=== PATIENT | female | born 1975 | race Caucasian/White ===

== ENCOUNTER 2017-02-05 16:20 | Emergency (ER) | payer MEDICAID ==
[2017-02-05 16:20] VITALS: BMI 26.5
[2017-02-05 16:30] VITALS: RESP 16; TEMP 98.3
[2017-02-05] MEDS ORDERED: Sodium Chloride 0.9% 1,000 ML IV STA (17:15)
[2017-02-05 17:31] LABS: BASO # 0.01 K/mm3 (0.0-2.0); BASO % 0.3 % (0.0-3.0); EOS # 0.1 (0.0-0.7); EOS % 1.6 % (1.5-5.0); GRAN # 1.89 (1.4-6.5); GRAN % 51.5 % (50.0-68.0); HEMOGLOBIN 12.5 gm/dL (12.0-16.0); LYMPH # 1.5 (1.2-3.4); LYMPH % 39.8 % (22.0-35.0); MEAN CELL VOLUME 81.9 fL (80.0-105.0); MEAN CORPUSCULAR HEMOGLOBIN 27.6 pg (25.0-35.0); MEAN CORPUSCULAR HGB CONC 33.7 g/dl (31.0-37.0); MEAN PLATELET VOLUME 10.9 fl (7.0-11.0); MONO # 0.3 (0.1-0.6); MONO % 6.8 % (1.0-6.0); PLATELET COUNT 216 10^3/uL (120.0-450.0); RBC 4.53 10^6/uL (3.5-6.1); RED CELL DISTRIBUTION WIDTH 13.1 % (11.5-14.5); WHITE BLOOD COUNT 3.7 10^3/ul (4.5-11.0)
--- NOTE | 2017-02-05 17:33 | ED PDOC ---
Arrival/HPI - General Chief Complaint: Abdominal Pain Time Seen by Provider: 02/05/17 16:45 Historian: Patient - History of Present Illness Narrative History of Present Illness (Text): 02/05/17 17:30 Patient with no significant past medical history, complains of 3 week history of intermittent epigastric abdominal pain described as gassy bloating burning sensation, associated with nausea. States that she saw her PMD regarding her symptoms and was prescribed Pepcid initially with no improvement, was then placed on Protonix which she has been taking since. She reports that her symptoms have been more persistent for the past week and worse with eating. Otherwise: (-) vomiting, (-) diarrhea, (-) dysuria, (-) fever, (-) melena, (-) hematochezia. Has history of prior abdominal surgery - appendectomy. PMD [place] Past Medical History - Provider Review Nursing Documentation Reviewed: Yes - Musculoskeletal/Rheumatological Hx Arthritis: Yes (lower back) Hx Back Pain: Yes Hx Falls: No - Gastrointestinal Hx Gastrointestinal Disorders: Yes Hx Gastritis: Yes - Psychiatric Hx Substance Use: No - Surgical History Other/Comment: Bilateral carpel tunnel surgery. - Anesthesia Hx Anesthesia: Yes Family/Social History - Physician Review Nursing Documentation Reviewed: Yes Family/Social History: Diabetes Smoking Status: Never Smoked Hx Alcohol Use: No Hx Substance Use: No Allergies/Home Meds Allergies/Adverse Reactions: Allergies No Known Allergies Allergy (Verified 12/27/15 15:52) Home Medications: Home Meds Medication Instructions Recorded Confirmed Famotidine [Pepcid] 40 mg PO DAILY 02/05/17 02/05/17 Pantoprazole Sodium [Protonix] 40 mg PO DAILY 02/05/17 02/05/17 Review of Systems - Review of Systems Constitutional: Normal. absent: Fatigue, Weight Change, Fevers Respiratory: Normal. absent: SOB, Cough, Sputum Cardiovascular: Normal. absent: Chest Pain, Palpitations, Edema Gastrointestinal: Normal, Abdominal Pain, Appetite Changes Musculoskeletal: Normal. absent: Arthralgias, Back Pain, Neck Pain Skin: Normal. absent: Rash, Pruritis, Skin Lesions Physical Exam - Physical Exam Narrative Physical Exam (Text): 02/05/17 17:33 GENERAL APPEARANCE: Patient is awake, alert, oriented x 3, in mild painful distress. SKIN: Warm, dry; (-) cyanosis. EYES: (-) conjunctival pallor, (-) scleral icterus. ENMT: Mucous membranes dry. NECK: (-) tenderness, (-) stiffness, (-) lymphadenopathy. CHEST AND RESPIRATORY: (-) rales, (-) rhonchi, (-) wheezes; breath sounds equal bilaterally. HEART AND CARDIOVASCULAR: (-) irregularity; (-) murmur, (-) gallop. ABDOMEN AND GI: (-) distention. Bowel sounds active; (+) RUQ and epigastric tenderness, (-) Wheeler's sign, (-) guarding, (-) rebound, (-) palpable masses, ( -) CVA tenderness. EXTREMITIES: (-) deformity, (-) edema, (+) distal pulses. NEURO AND PSYCH: Mental status as above; (-) focal findings. Vital Signs Temp Pulse Resp BP Pulse Ox 02/05/17 18:15 62 16 106/67 100 02/05/17 17:00 63 16 148/68 100 02/05/17 16:29 98.3 F 71 16 129/80 100 Medical Decision Making ED Course and Treatment: 02/05/17 17:33 14 yo F with no significant past medical history, complains of 3 week history of intermittent epigastric abdominal pain worse x 1 week, associated with nausea. Differential diagnosis : r/o acute cholecystitis, biliary colic, dyspepsia Plan: -- Labs -- IV fluids -- Urinalysis -- Protonix IV / Zofran IV -- Reassess and disposition -- US ABD 02/05/17 19:30 Laboratory results reviewed and are within normal limits. Ultrasound abdomen shows no acute findings. Lab and ultrasound results discussed with the patient in great detail. On reevaluation patient reports significant improvement of abdominal pain and nausea. She still complains of mild epigastric pain. On exam , patient is laying in bed comfortably in no acute distress, abdomen remains soft with mild epigastric tenderness. Patient given GI cocktail. Informed of likely diagnosis of dyspepsia, advised to continue protonix, will give Rx for carafate, and instructed to f/u with her pmd and obtain GI referral for follow up and need for possible endoscopy in the near future. Instructed to return to the emergency room at any time for any new or worsening symptoms. Patient states she fully agrees with and understands discharge instructions. States that she agrees with the plan and disposition. Verbalized and repeated discharge instructions and plan. I have given the patient opportunity to ask any additional questions. - Lab Interpretations Lab Results: 02/05/17 16:55 02/05/17 16:55 Lab Results 02/05/17 16:55: Sodium 140, Potassium 4.1, Chloride 103, Carbon Dioxide 26, Anion Gap 15, BUN 9, Creatinine 0.7, Est GFR ( Amer) > 60, Est GFR (Non- Af Amer) > 60, Random Glucose 103, Calcium 9.3, Total Bilirubin 0.6, AST 29, ALT 35, Alkaline Phosphatase 39, Total Protein 7.7, Albumin 4.4, Globulin 3.3, Albumin/Globulin Ratio 1.3, Lipase 80 02/05/17 16:55: Urine Color Yellow, Urine Appearance Sl cloudy, Urine pH 6.0, Ur Specific [place] 1.015, Urine Protein Negative, Urine Glucose (UA) Negative, Urine Ketones Negative, Urine Blood Moderate H, Urine Nitrate Negative, Urine Bilirubin Negative, Urine Urobilinogen 0.2, Ur Leukocyte Esterase Negative, Urine RBC 5 - 10, Urine WBC 1 - 3, Ur Epithelial Cells 1 - 3, Urine Bacteria Few 02/05/17 16:55: WBC 3.7 L D, RBC 4.53, Hgb 12.5, Hct 37.1, MCV 81.9, MCH 27.6, MCHC 33.7, RDW 13.1, Plt Count 216, MPV 10.9, Gran % 51.5, Lymph % (Auto) 39.8 H , [place] % (Auto) 6.8 H, Eos % (Auto) 1.6, Baso % (Auto) 0.3, Gran # 1.89, Lymph # 1.5, [place] # 0.3, Eos # 0.1, Baso # 0.01 I have reviewed the lab results: Yes - RAD Interpretation Narrative RAD Interpretations (Text): 02/05/17 19:50 US ABDOMEN : FINDINGS: Liver: The liver measures 15.3 cm in length. The liver is normal in echotexture. Gallbladder: No discrete gallstones are visualized. There is no significant gallbladder wall thickening. Common bile duct: The common bile duct measures 1.8 mm in diameter, which is within normal limits. Pancreas: There is suboptimal evaluation of the tail of the pancreas due to bowel gas. No focal abnormality is seen within the visualized head or body of the pancreas. Kidneys: The right kidney measures 10.0 x 3.3 x 4.9 cm. The left kidney measures 9.9 x 5.4 x 6.1 cm. There is no hydronephrosis or shadowing nephrolithiasis bilaterally. Spleen: The spleen measures 10.8 x 4.0 x 4.3 cm and is normal in echotexture. Aorta: Evaluation of the abdominal aorta is limited. Inferior vena cava: The visualized segment of the IVC is patent. IMPRESSION: 1. No sonographic evidence of acute cholecystitis. 2. Additional findings described above. Thank you for allowing us to participate in the care of your patient. Dictated and Authenticated by: Daniel Tse MD 02/05/2017 7:42 PM Eastern Time ([place] & [place]) Radiology Orders: 02/05/17 17:15 ABDOMEN COMPLETE [US] Stat - Medication Orders Current Medication Orders: Discontinued Medications Al Hydrox/Mg Hydrox/Simethicone (Maalox Plus 30 Ml) 30 ml PO STAT STA Stop: 02/05/17 20:07 Belladonna/Phenobarbital ( Elixir) 5 ml PO STAT STA Stop: 02/05/17 20:07 Sodium Chloride (Sodium Chloride 0.9%) 1,000 mls @ 1,000 mls/hr IV .Q1H STA Stop: 02/05/17 18:14 Last Admin: 02/05/17 17:23 Dose: 1,000 mls/hr Lidocaine HCl (Lidocaine 2% Viscous) 15 ml PO STAT STA Stop: 02/05/17 20:07 Ondansetron HCl (Zofran Inj) 4 mg IVP STAT STA Stop: 02/05/17 17:16 Last Admin: 02/05/17 17:24 Dose: 4 mg Pantoprazole Sodium (Protonix Inj) 40 mg IVP STAT STA Stop: 02/05/17 17:16 Last Admin: 02/05/17 17:24 Dose: 40 mg - PA / HAND COLLATOR / Resident Statement / has reviewed & agrees with the documentation as recorded. Disposition/Present on Arrival - Present on Arrival Any Indicators Present on Arrival: No History of DVT/PE: No History of Uncontrolled Diabetes: No Urinary Catheter: No History of Decub. Ulcer: No History Surgical Site Infection Following: None - Disposition Have Diagnosis and Disposition been Completed?: Yes Diagnosis: Dyspepsia Disposition: HOME/ ROUTINE Disposition Time: 19:30 Patient Plan: Discharge Patient Problems: Current Active Problems Problem Status Onset Dyspepsia Acute Condition: IMPROVED Discharge Instructions (ExitCare): Chronic Indigestion (ED) Print Language: GERMAN Additional Instructions: Thank you for letting us take care of you today. You were treated for dyspepsia. The emergency medical care you received today was directed at your acute symptoms. Continue taking protonix. If you were prescribed any medication , please fill it and take as directed. It may take several days for your symptoms to resolve. Return to the Emergency Department if your symptoms worsen , do not improve, or if you have any other problems. Please contact your doctor in 2 days for re-evaluation and follow up. Bring any paperwork you were given at discharge with you along with any medications you are taking to your follow up visit. Our treatment cannot replace ongoing medical care by a primary care provider (PCP) outside of the emergency department. Thank you for allowing the [facility] team to be part of your care today. Prescriptions: Sucralfate [Carafate] 1 gm PO TID PRN #30 tablet PRN Reason: Dyspepsia Referrals: Dallas Holder MD [Primary Care Provider] - Follow up with primary Forms: [employer] (Macanese)
[2017-02-05 17:35] LABS: URINE BILIRUBIN NEGATIVE (NEGATIVE); URINE BLOOD MODERATE (NEGATIVE); URINE GLUCOSE (UA) NEGATIVE (NEGATIVE); URINE LEUKOCYTE ESTERASE NEGATIVE Leu/uL (NEGATIVE); URINE NITRATE NEGATIVE (NEGATIVE); URINE PROTEIN NEGATIVE mg/dL (<30 mg/dL); URINE UROBILINOGEN 0.2 E.U./dL (<1 E.U./dL)
[2017-02-05 17:39] LABS: URINE APPEARANCE SL CLOUDY (CLEAR); URINE COLOR YELLOW (YELLOW)
[2017-02-05 17:52] LABS: ALB/GLOB RATIO 1.3 (1.1-1.8); ALBUMIN 4.4 g/dL (3.0-4.8); ALT/SGPT 35 U/L (7-56); AST/SGOT 29 U/L (15-39); BLOOD UREA NITROGEN 9 mg/dL (7-21); CALCIUM 9.3 mg/dL (8.4-10.5); GFR AFRICAN-AMERICAN > 60; GFR NON-AFRICAN AMERICAN > 60; LIPASE 80 U/L (23-300)
[2017-02-05 17:54] LABS: URINE BACTERIA FEW (NEG)
--- NOTE | 2017-02-05 19:42 | US ---
EXAM: US Abdomen Complete CLINICAL HISTORY: The patient age is 41 years old and is female; Pain; Abdominal pain; Epigastric; Additional info: Epigastric pain Facility exam id and description: Us abd abdomen complete TECHNIQUE: Real-time ultrasound of the abdomen (complete) with image documentation. EXAM DATE/TIME: 02/05/2017 5:15 PM COMPARISON: No relevant prior studies available. FINDINGS: Liver: The liver measures 15.3 cm in length. The liver is normal in echotexture. Gallbladder: No discrete gallstones are visualized. There is no significant gallbladder wall thickening. Common bile duct: The common bile duct measures 1.8 mm in diameter, which is within normal limits. Pancreas: There is suboptimal evaluation of the tail of the pancreas due to bowel gas. No focal abnormality is seen within the visualized head or body of the pancreas. Kidneys: The right kidney measures 10.0 x 3.3 x 4.9 cm. The left kidney measures 9.9 x 5.4 x 6.1 cm. There is no hydronephrosis or shadowing nephrolithiasis bilaterally. Spleen: The spleen measures 10.8 x 4.0 x 4.3 cm and is normal in echotexture. Aorta: Evaluation of the abdominal aorta is limited. Inferior vena cava: The visualized segment of the IVC is patent. IMPRESSION: 1. No sonographic evidence of acute cholecystitis. 2. Additional findings described above.
[2017-02-05] MEDS ORDERED: Alum-Mag Hydrox-Simethicone Susp (30 mL) PO STA (20:06)
[2017-02-05] MEDS ORDERED: Atrop/Hyosc/Scopal/PB Elixir (120 ml) PO STA (20:06)
[2017-02-05 20:40] VITALS: BP 118/62; PULSE 69; O2SAT 99
== END 2017-02-05 20:40 | disposition home or self-care (01) ==
LOC: ED 16:20
DX: R10.13 Epigastric pain (principal)
CPT/HCPCS: 76700; 80053; 81001; 83690; 85025; 87086; 96361; 96374; 96375; 99284; C9113; J2405; J7040

== ENCOUNTER 2017-02-21 09:16 | Day surgery (SDC) | payer MEDICAID ==
[2017-02-15 10:06] VITALS: BMI 26.2
[2017-02-21] MEDS ORDERED: Propofol 10 mg/ml Inj (20 ML) ONE (11:20)
[2017-02-21] MEDS ORDERED: Sodium Chloride 0.9% 1,000 ML IV SCH (11:45)
[2017-02-21 15:01] VITALS: BP 109/63; PULSE 74; RESP 18; TEMP 98.4; O2SAT 100
== END 2017-02-21 13:14 | disposition home or self-care (01) ==
LOC: ENDO 09:16
PROVIDERS: ATTEND Internal Medicine
DX: K29.70 Gastritis, unspecified, without bleeding (principal); B96.81 Helicobacter pylori [H. pylori] as the cause of diseases classified elsewhere
CPT/HCPCS: 43239; 84703; 88305; 88342; J2001; J2704; J7040 ×2

== ENCOUNTER 2017-03-28 19:52 | Emergency (ER) | payer MEDICAID ==
[2017-03-28 19:58] VITALS: BMI 26.4
[2017-03-28] MEDS ORDERED: Sodium Chloride 0.9% 1,000 ML IV STA ×2 (20:15)
[2017-03-28 20:43] LABS: BASO # 0.02 K/mm3 (0.0-2.0); BASO % 0.5 % (0.0-3.0); EOS # 0.1 (0.0-0.7); EOS % 1.9 % (1.5-5.0); GRAN # 1.83 (1.4-6.5); GRAN % 42.4 % (50.0-68.0); HEMATOCRIT 34.4 % (36.0-48.0); LYMPH % 47.1 % (22.0-35.0); MEAN CELL VOLUME 79.6 fl (80.0-105.0); MEAN CORPUSCULAR HEMOGLOBIN 27.1 pg (25.0-35.0); MEAN PLATELET VOLUME 10.2 fl (7.0-11.0); MONO # 0.4 (0.1-0.6); MONO % 8.1 % (1.0-6.0); RED CELL DISTRIBUTION WIDTH 12.7 % (11.5-14.5); WHITE BLOOD COUNT 4.3 10^3/ul (4.5-11.0)
[2017-03-28 20:44] LABS: URINE APPEARANCE CLEAR (CLEAR); URINE BILIRUBIN NEGATIVE (NEGATIVE); URINE BLOOD MODERATE (NEGATIVE); URINE COLOR YELLOW (YELLOW); URINE GLUCOSE (UA) NEGATIVE (NEGATIVE); URINE KETONE NEGATIVE (NEGATIVE); URINE LEUKOCYTE ESTERASE NEGATIVE Leu/uL (NEGATIVE); URINE PROTEIN NEGATIVE mg/dL (<30 mg/dL); URINE UROBILINOGEN 0.2 E.U./dL (<1 E.U./dL)
[2017-03-28 20:54] VITALS: O2SAT 98
[2017-03-28 20:54] LABS: ALB/GLOB RATIO 1.4 (1.1-1.8); ALKALINE PHOSPHATASE 38 U/L (38-126); ALT/SGPT 25 U/L (7-56); AST/SGOT 29 U/L (14-36); BILIRUBIN,TOTAL 0.7 mg/dL (0.2-1.3); BLOOD UREA NITROGEN 11 mg/dL (7-21); CALCIUM 9.3 mg/dL (8.4-10.5); CARBON DIOXIDE 23 mmol/L (21-33); CHLORIDE 107 mmol/L (98-107); GFR AFRICAN-AMERICAN > 60; GLUCOSE,RANDOM 104 mg/dL (70-110); LIPASE 125 U/L (23-300); MAGNESIUM 1.9 mg/dL (1.7-2.2); POTASSIUM 3.7 mmol/L (3.6-5.0); SODIUM 143 mmol/L (132-148); TOTAL PROTEIN 7.1 g/dL (5.8-8.3)
--- NOTE | 2017-03-28 20:59 | ED PDOC ---
Arrival/HPI - General Chief Complaint: Palpitations Time Seen by Provider: 03/28/17 20:01 Historian: Patient - History of Present Illness Narrative History of Present Illness (Text): 03/28/17 20:50 A 41 year old female, whose past medical history includes gatritis and h. pylori , presents to the emergency department complaining of palpitations, shortness of breath, and poor appetite for several weeks. Patient reports she was recently diagnosed with H. Pylori through endoscopy. She has been taking amoxicillin clarithromycin and protonix since diagnosis. Since taking medications, her symptoms have become more frequent than prior to taking them. Patient notes also experiencing chest tightness and dizziness tonight but denies of any vomiting or any other complaints. PMD: Dr. Holder Time/Duration: > week (several weeks) Symptom Onset: Gradual Symptom Course: Unchanged Past Medical History - Provider Review Nursing Documentation Reviewed: Yes - Infectious Disease Hx of Infectious Diseases: None - Cardiac Hx Pacemaker: No - Neurological Hx Paralysis: No - Hematological/Oncological Hx Blood Transfusions: No Hx Blood Transfusion Reaction: No - Musculoskeletal/Rheumatological Hx Musculoskeletal Disorders: Yes (LOWER) - Gastrointestinal Hx Gastrointestinal Disorders: Yes Hx Gastritis: Yes Other/Comment: H Pylori - Psychiatric Hx Emotional Abuse: No Hx Physical Abuse: No Hx Substance Use: No - Surgical History Other/Comment: Bilateral carpel tunnel surgery. - Anesthesia Hx Anesthesia Reactions: No Hx Malignant Hyperthermia: No - Suicidal Assessment Feels Threatened In Home Enviroment: No Family/Social History - Physician Review Nursing Documentation Reviewed: Yes Family/Social History: No Known Family HX Smoking Status: Never Smoked Hx Alcohol Use: No Hx Substance Use: No Allergies/Home Meds Allergies/Adverse Reactions: Allergies No Known Allergies Allergy (Verified 02/15/17 10:06) Home Medications: Home Meds Medication Instructions Recorded Confirmed Famotidine [Pepcid] 40 mg PO DAILY 02/05/17 03/28/17 Pantoprazole Sodium [Protonix] 40 mg PO DAILY 02/05/17 03/28/17 Sucralfate [Carafate] 1 gm PO TID 02/15/17 03/28/17 Amoxicillin [Amoxil 500 mg Cap] 2 cap PO Q12H 03/28/17 03/28/17 Clarithromycin [Biaxin Filmtab] 1 tab PO Q12H 03/28/17 03/28/17 Review of Systems - Physician Review All systems were reviewed & negative as marked: Yes - Review of Systems Respiratory: SOB Cardiovascular: Palpitations Gastrointestinal: Appetite Changes. absent: Vomiting Physical Exam Vital Signs Reviewed: Yes Vital Signs Temp Pulse Resp BP Pulse Ox 03/28/17 20:53 68 18 161/71 H 98 03/28/17 20:14 97.6 F 84 18 123/85 100 Temperature: Afebrile Blood Pressure: Normal Pulse: Regular Respiratory Rate: Normal Appearance: Positive for: Non-Toxic, Cachectic, Other (anxious) Pain Distress: None Mental Status: Positive for: Alert and Oriented X 3 - Systems Exam Head: Present: Atraumatic, Normocephalic Pupils: Present: PERRL Conjunctiva: Present: Normal Mouth: Present: Moist Mucous Membranes Pharnyx: Present: Normal. No: ERYTHEMA, EXUDATE Neck: Present: Normal Range of Motion Respiratory/Chest: Present: Clear to Auscultation, Good Air Exchange. No: Respiratory Distress, Accessory Muscle Use Cardiovascular: Present: Regular Rate and Rhythm, Normal S1, S2. No: Murmurs Abdomen: Present: Normal Bowel Sounds. No: Tenderness, Distention, Peritoneal Signs Back: Present: Normal Inspection Upper Extremity: Present: Normal Inspection. No: Cyanosis, Edema Lower Extremity: Present: Normal Inspection. No: Edema Neurological: Present: GCS=15, CN II-XII Intact, Speech Normal Skin: Present: Warm, Dry, Normal Color. No: Rashes Psychiatric: Present: Alert, Oriented x 3, Normal Insight, Normal Concentration Medical Decision Making ED Course and Treatment: 03/28/17 20:55 Impression: 41 year old female with palpitations, shortness of breath, and poor appetite. Physical exam shows patient is anxious appearing non-toxic; rest of exam is normal. Plan: -- EKG -- Chest X-ray -- Labs -- Xanax -- Zofran -- Protonix -- IV Fluids -- Urinalysis --Urine Test -- Reassess and disposition Prior Visits: Notes and results from previous visits were reviewed. Patient was last seen in the emergency department on 02/05/2017 for intermittent epigastric abdominal pain. Patient was discharged home. Progress Notes: EKG: Ordered, reviewed, and independently interpreted the EKG. Rate : 78 BPM Rhythm : NSR Interpretation : No ST-segment elevations or depressions, no T-wave inversions, normal intervals. Comparison : No previous EKG for comparison. 03/28/17 22:35 Patient with noted history with atypical cp. Vitals were normal with normal ekg and CXR. Labs were unremarkable, including normal CE and d-dimer; patient felt much better with full resolution of symptoms after xanax and protonix and IVF - doubt cardiopulmonary etiology; it is more likely GI vs anxiety - ok for d /c to f/u pmd and GI. - Lab Interpretations Lab Results: 03/28/17 20:29 03/28/17 20:29 Lab Results 03/28/17 20:29: Sodium 143, Potassium 3.7, Chloride 107, Carbon Dioxide 23, Anion Gap 17, BUN 11, Creatinine 0.7, Est GFR ( Amer) > 60, Est GFR (Non- Af Amer) > 60, Random Glucose 104, Calcium 9.3, Magnesium 1.9, Total Bilirubin 0.7, AST 29, ALT 25, Alkaline Phosphatase 38, Lactate Dehydrogenase 366, Total Creatine Kinase 90, Troponin I < 0.01, NT-Pro-B Natriuret Pep 31.9, Total Protein 7.1, Albumin 4.2, Globulin 2.9, Albumin/Globulin Ratio 1.4, Lipase 125 03/28/17 20:29: Urine Color Yellow, Urine Appearance Clear, Urine pH 7.0, Ur Specific [place] <= 1.005, Urine Protein Negative, Urine Glucose (UA) Negative, Urine Ketones Negative, Urine Blood Moderate H, Urine Nitrate Negative, Urine Bilirubin Negative, Urine Urobilinogen 0.2, Ur Leukocyte Esterase Negative, Urine RBC 0 - 2, Urine WBC 0 - 2, Ur Epithelial Cells 0 - 2, Urine Bacteria Trace 03/28/17 20:29: PT 11.2, INR 1.04, APTT 24.8, D-Dimer, Quantitative 0.25 03/28/17 20:29: WBC 4.3 L, RBC 4.32, Hgb 11.7 L, Hct 34.4 L, MCV 79.6 L, MCH 27.1, MCHC 34.0, RDW 12.7, Plt Count 204, MPV 10.2, Gran % 42.4 L, Lymph % (Auto ) 47.1 H, [place] % (Auto) 8.1 H, Eos % (Auto) 1.9, Baso % (Auto) 0.5, Gran # 1.83 , Lymph # 2.0, Power # 0.4, Eos # 0.1, Baso # 0.02 I have reviewed the lab results: Yes - RAD Interpretation Radiology Orders: 03/28/17 20:14 CHEST PORTABLE [RAD] Stat - Medication Orders Current Medication Orders: Discontinued Medications Alprazolam (Xanax) 0.25 mg PO STAT STA PRN Reason: Protocol Stop: 03/28/17 20:16 Last Admin: 03/28/17 20:35 Dose: 0.25 mg Sodium Chloride (Sodium Chloride 0.9%) 1,000 mls @ 999 mls/hr IV .Q1H1M STA Stop: 03/28/17 21:15 Last Admin: 03/28/17 20:36 Dose: 999 mls/hr eMAR Start Stop Document 03/28/17 20:36 GMD (Rec: 03/28/17 20:36 [facility]) Intravenous Solution Start Date 03/28/17 Start Time 20:36 End Date 03/28/17 End time 21:36 Total Infusion Time 60 Sodium Chloride (Sodium Chloride 0.9%) 1,000 mls @ 999 mls/hr IV .Q1H1M STA Stop: 03/28/17 21:15 Last Admin: 03/28/17 21:08 Dose: 999 mls/hr eMAR Start Stop Document 03/28/17 21:08 GMD (Rec: 03/28/17 21:08 [id number] Intravenous Solution Start Date 03/28/17 Start Time 21:08 End Date 03/28/17 End time 22:09 Total Infusion Time 61 Ondansetron HCl (Zofran Inj) 4 mg IVP STAT STA Stop: 03/28/17 20:16 Last Admin: 03/28/17 20:36 Dose: 4 mg IVP Administration Document 03/28/17 20:36 GMD (Rec: 03/28/17 20:36 [facility]) Charges for Administration # of IVP Administrations 1 Pantoprazole Sodium (Protonix Inj) 40 mg IVP ONCE STA Stop: 03/28/17 20:16 Last Admin: 03/28/17 20:36 Dose: 40 mg IVP Administration Document 03/28/17 20:36 GMD (Rec: 03/28/17 20:36 [facility] Charges for Administration # of IVP Administrations 1 - Scribe Statement The provider has reviewed the documentation as recorded by the Zane Chinchilla Provider Scribe Attestation: All medical record entries made by the Scribe were at my direction and personally dictated by me. I have reviewed the chart and agree that the record accurately reflects my personal performance of the history, physical exam, medical decision making, and the department course for this patient. I have also personally directed, reviewed, and agree with the discharge instructions and disposition. Disposition/Present on Arrival - Present on Arrival Any Indicators Present on Arrival: No History of DVT/PE: No History of Uncontrolled Diabetes: No Urinary Catheter: No History of Decub. Ulcer: No History Surgical Site Infection Following: None - Disposition Have Diagnosis and Disposition been Completed?: Yes Diagnosis: Atypical chest pain Disposition: HOME/ ROUTINE Disposition Time: 10:20 Patient Plan: Discharge Condition: GOOD Discharge Instructions (ExitCare): Chest Pain (ED) Additional Instructions: Continue your medications as prescribed. Use reglan as needed if experiencing nausea, and make sure to finish the antibiotic course. Recommend use of daily probiotics while on the antibiotics. Follow up with Dr. Crane and Dr. Holder. Return to the emergency department if any new concerning symptoms. Prescriptions: Metoclopramide [Reglan] 1 tab PO TID PRN #30 tab PRN Reason: Nausea/Vomiting Referrals: Dallas Holder MD [Primary Care Provider] - Follow up with primary Hi Crane MD [Staff Provider] - Follow up with primary Forms: [employer] (Indonesian)
[2017-03-28 21:00] LABS: URINE BACTERIA TRACE (NEG); URINE EPITHELIAL CELLS 0 - 2 /hpf (0-5); URINE RBC 0 - 2 /hpf (0-2); URINE WBC 0 - 2 /hpf (0-6)
[2017-03-28 21:04] LABS: INR 1.04 (0.93-1.08); PARTIAL THROMBOPLASTIN TIME 24.8 Seconds (23.7-30.8)
[2017-03-28 21:06] LABS: TROPONIN I < 0.01 ng/mL
[2017-03-28 21:11] LABS: D DIMER 0.25 mg/L FEU (0-0.50)
[2017-03-28 22:43] VITALS: BP 141/64; PULSE 99; RESP 17; TEMP 97.8
--- NOTE | 2017-03-29 09:25 | RAD ---
HISTORY: sob COMPARISON: Portable chest 12/27/2015. FINDINGS: LUNGS: No active pulmonary disease. PLEURA: No significant pleural effusion identified, no pneumothorax apparent. CARDIOVASCULAR: Cardiac silhouette appears stable appearing upper limits normal size. OSSEOUS STRUCTURES: No significant abnormalities. VISUALIZED UPPER ABDOMEN: Normal. OTHER FINDINGS: None. IMPRESSION: No acute cardiopulmonary disease appreciable or significant interval change identified.
--- NOTE | 2017-03-29 11:37 | CARD ---
APPROVED REPORT EKG Measurement Heart [id number] <Conclusion> Normal sinus rhythm Normal ECG
== END 2017-03-28 22:48 | disposition home or self-care (01) ==
LOC: ED 19:52
DX: R07.89 Other chest pain (principal)
CPT/HCPCS: 71010; 80053; 81001; 82550; 83615; 83690; 83735; 83880; 84484; 85025; 85378; 85610; 85730; 93005; 96361; 96374; 96375; 99285; C9113; J2405; J7040

== ENCOUNTER 2017-06-13 07:03 | Day surgery (SDC) | payer MEDICAID ==
[2017-06-07 10:25] VITALS: BMI 27.3
[2017-06-13] MEDS ORDERED: Propofol 10 mg/ml Inj (20 ML) ONE (07:58)
[2017-06-13] MEDS ORDERED: Sodium Chloride 0.9% 1,000 ML IV SCH (10:15)
[2017-06-13 17:34] VITALS: BP 118/64; PULSE 80; RESP 18; TEMP 98.1; O2SAT 100
== END 2017-06-13 12:35 | disposition home or self-care (01) ==
LOC: ENDO 07:03
PROVIDERS: ATTEND Internal Medicine
DX: K59.00 Constipation, unspecified (principal); K64.8 Other hemorrhoids; R10.9 Unspecified abdominal pain
CPT/HCPCS: 45378; 84703; J2001; J2704; J7040 ×2